=== PATIENT | female | born 1950 | race African-American/Black ===

== ENCOUNTER 2024-04-27 14:00 | Emergency (ER) | payer MEDICARE, OTHER ==
[~2024-04-27] VITALS: Ht 167.6 cm; Wt 73.0 kg
[~2024-04-27 14:00] MED LIST: ASPI-1497 PO; ATEN50TA PO; OMEP20CA14 PO; PARO40TA75 PO; TRIA1CAP6 PO
[2024-04-27 14:03] VITALS: O2SAT 98
[2024-04-27] MEDS: DIPHENHYDRAMINE 25MG CAPSULE PO ONE (16:42)
[2024-04-27] MEDS: MECLIZINE 25MG TABLET PO ONE (16:42)
[2024-04-27] MEDS: METOCLOPRAMIDE HCL 10MG TABLET PO ONE (16:42)
[2024-04-27 17:51] LABS: BASOPHILS % 0.6 % (0.0-2.0); HEMATOCRIT. 41.3 % (36.0-48.0); HEMOGLOBIN. 13.3 g/dL (12.0-16.0); LYMPHOCYTES % 14.3 % (20.0-50.0); MEAN CORPUSCULAR HEMOGLOBIN 30.6 pg (28.0-32.0); MEAN CORPUSCULAR HGB CONC 32.2 g/dL (31.0-37.0); MEAN PLATELET VOLUME 8.2 fl (7.4-10.4); MONOCYTES % 5.9 % (2.0-8.0); NEUTROPHILS % 78.2 % (40.0-76.0); PLATELET 340 x1000/uL (130-400); RED BLOOD CELL COUNT 4.34 mill/uL (4.2-5.4); RED CELL DISTRIBUTION WIDTH 15.3 % (11.6-14.6); WHITE BLOOD COUNT 9.1 x1000/uL (4.5-11.0)
[2024-04-27 18:03] LABS: PROTHROMBIN TIME 10.7 sec (9.6-11.0)
[2024-04-27 18:06] LABS: CHLORIDE 104 mEq/L (98-107); POTASSIUM 3.7 mEq/L (3.5-5.1); SODIUM 141 mEq/L (136-145)
[2024-04-27 18:07] LABS: CARBON DIOXIDE 33 mEq/L (21-32)
[2024-04-27 18:08] LABS: CALCIUM 9.4 mg/dL (8.7-10.4)
[2024-04-27 18:12] LABS: CREATININE 0.7 mg/dL (0.6-1.0); GLUCOSE 98 mg/dL (70-105); UREA NITROGEN BLOOD 11 mg/dL (9-23)
[2024-04-27 18:19] LABS: CLARITY URINE CLEAR (CLEAR); COLOR URINE YELLOW (YELLOW); GLUCOSE URINE NEGATIVE (NEGATIVE); KETONES URINE NEGATIVE (NEGATIVE); LEUKOCYTE ESTERASE URINE NEGATIVE (NEGATIVE); NITRITE URINE NEGATIVE (NEGATIVE); OCCULT BLOOD URINE NEGATIVE (NEGATIVE); PH URINE 7.5 (4.5-8.0); PROTEIN URINE NEGATIVE (NEGATIVE); SPECIFIC GRAVITY URINE 1.015 (1.005-1.030); UROBILINOGEN URINE 0.2 E.U./dL (0.2-1.0)
[2024-04-27 18:19] LABS: TROPONIN I HIGH SENSITIVITY < 4 ng/L (3.0-34)
[2024-04-27] MEDS ORDERED: MECL-299 MT (18:46)
[2024-04-27 19:11] VITALS: BP 138/74; PULSE 88; RESP 16; TEMP 37.1; O2SAT 98
== END 2024-04-27 19:11 | disposition home or self-care (01) ==
LOC: ER 14:00
DX: R42 Dizziness and giddiness (principal); R03.0 Elevated blood-pressure reading, without diagnosis of hypertension; R51.9 Headache, unspecified; R41.0 Disorientation, unspecified; F41.9 Anxiety disorder, unspecified; I11.9 Hypertensive heart disease without heart failure; Z79.82 Long term (current) use of aspirin; Z79.899 Other long term (current) drug therapy; Z88.0 Allergy status to penicillin
CPT/HCPCS: 99285; 70450; 71045; 80048; 81003; 83880; 83690; 85025; 85610; 84484; 36415; 70486; 74176; 93005; Q0163; J8597 ×2